=== PATIENT | female | born 1935 | race Caucasian/White ===

== ENCOUNTER 2017-05-22 08:32 | Emergency (ER) | payer MEDICARE, OTHER ==
[2017-05-22] MEDS ORDERED: ACETAMINOPHEN 500 MG TABLET PO ONE (08:39)
[2017-05-22 08:55] LABS: Hematocrit 36.8 % (37.0-47.0); Mean Cell Volume 94.6 fl (78-100); Mean Corpuscular Hemoglobin 30.8 pg (27-31); Mean Corpuscular Hgb Conc 32.6 g/dl (32-36); Mean Platelet Volume 9.5 fl (6.0-9.5); Platelet Count 209 K/mm3 (150-450); Red Blood Count 3.89 M/mm3 (4.2-5.4); Red Cell Distribution Width 15.4 % (11.5-14.0); White Blood Count 19.6 K/mm3 (4.0-10.5)
--- NOTE | 2017-05-22 09:02 | ERNOTE ---
Time Seen by Provider: 05/22/17 08:41 Stated Complaint: NAUSEA Presenting Symptoms:: cough, other - congestion Exam Limitations: no limitations Immunizations: IMMUNIZATION HX Immunizations Up to Date Yes History of Influenza Vaccine Yes Hx Pneumococcal Vaccination Yes Allergies/Adverse Reactions: Allergies No Known Allergies Allergy (Verified 05/22/17 08:38) Home Medications: HOME MEDICATIONS Alendronate Sodium [Fosamax] 70 mg PO Q7D 07/20/14 [Last Taken 07/17/14] Atenolol [Tenormin] 50 mg PO DAILY 07/20/14 [Last Taken Unknown] Golimumab [Simponi Aria] 50 mg IV Q2M 07/20/14 [Last Taken Unknown] HYDROcodone/ACETAMINOPHEN [[place] 5-325] 1 tab PO Q4H PRN 07/20/14 [Last Taken Unknown] Methotrexate Sodium [Methotrexate] 15 mg PO Q7D 07/20/14 [Last Taken 07/16/14] Tolterodine Tartrate [Detrol LA] 4 mg PO DAILY 07/20/14 [Last Taken Unknown] predniSONE [Prednisone] 5 mg PO DAILY 07/20/14 [Last Taken Unknown] Clopidogrel Bisulfate [Plavix] 75 mg PO DAILY #30 tab 08/01/14 [Last Taken Unknown] amLODIPine BESYLATE [Norvasc] 5 mg PO DAILY #30 tab 08/01/14 [Last Taken Unknown ] Aspirin [Aspirin Chewable] 81 mg PO DAILY 02/17/15 [Last Taken Unknown] Azithromycin [Zithromax] 250 mg PO DAILY #6 tablet 05/22/17 [Last Taken Unknown] - History of Present Ilness Narrative: Patient states that for the past several weeks she's had congestion and cough. She states this morning, but worse and she spiked a fever and became concerned. Timing: getting worse Severity: moderate Frequency/Possible Cause: Reports: no prior episodes Modifying Factors - Improves: Reports: albuterol Modifying Factors - Worsens: Reports: nothing Associated Symptoms: Reports: cough Review of Systems - Review of Systems Constitutional: Present: See HPI EYE: Present: no symptoms reported ENT: Present: sore throat Respiratory: Present: cough Cardiology: Present: no symptoms reported Gastrointestinal/Abdominal: Present: no symptoms reported Genitourinary: Present: no symptoms reported Musculoskeletal: Present: no symptoms reported Skin: Present: no symptoms reported Neurological: Present: no symptoms reported Endocrine: Present: no symptoms reported Hematologic/Lymphatic: Present: no symptoms reported Psych: Present: no symptoms reported - Patient's Past Medical History Patient History - Medical: Arthritis, Depression, Other - RA Patient History - Cardiac/Respiratory: Hypertension Patient History - Surgical Procedures: Appendectomy, Cataracts, Hysterectomy, T & A, Other - Social History Smoking Status: Former smoker - Immunizations Immunizations Up to Date: Yes Hx Pneumococcal Vaccination: Yes History of Influenza Vaccine: Yes Physical Exam - Physical Exam General Appearance: Present: wd/wn, alert, mild distress Head Exam: Present: normal inspection, no evidence of injury Eye Exam: Normal inspection: bilateral, PERRL: bilateral Ears, Nose, Throat: Present: normal ENT inspection, pharyngeal erythema Neck: Present: normal inspection, nontender Respiratory: Present: no respiratory distress, no accessory muscle use, chest nontender, other Cardiovascular/Chest: Present: regular rate, rhythm, no murmur, normal peripheral pulses Gastrointestinal/Abdominal: Present: normal bowel sounds, nontender, nondistended, soft, no organomegaly Rectal Exam: Present: deferred Back Exam: Present: normal inspection, normal range of motion Extremity Exam: Present: normal inspection, non-tender, no edema, normal range of motion Neurological Exam: Present: alert, oriented, normal mood/affect Skin Exam: Present: normal color, warm/dry Lymphatic Exam: Present: no adenopathy ED Progress - Results and Orders Patient's Lab Results:: I have reviewed the patient's lab results. - Vital Signs Patient's Vital Signs:: I have reviewed the patient's vital signs. Vital Signs: Vital Signs 05/22/17 05/22/17 08:35 08:43 Temperature 38 C H Pulse Rate 71 71 Respiratory 18 Rate Blood Pressure 145/64 O2 Sat by Pulse 94 Oximetry - X-Ray X-Ray #1 X-Ray: chest Interpretation: Reviewed by me - Progress/Reassessment Chief Complaint: Upper Respiratory Symptoms Plan - Plan Plan: While the patient only has an upper respiratory infection she is immunosuppressed from her rheumatoid arthritis and runs with a chronically elevated white count. Patient will be given 1 g Rocephin IM and she'll be started on antibiotics with the caveat to follow-up with her family physician within one week. She agrees to continue to force fluids and will watch her fever closely and treated with either ibuprofen or Tylenol at home. Departure Clinical Impression: Bronchitis URI (upper respiratory infection) Qualifiers: URI type: unspecified URI Qualified Code(s): J06.9 - Acute upper respiratory infection, unspecified - Departure Disposition: Home self-care Condition: Good Instructions: Acute Bronchitis Referrals: Laurie Honeycutt MD [Primary Care Provider] - Prescriptions: Azithromycin [Zithromax] 250 mg PO DAILY #6 tablet
[2017-05-22 09:07] LABS: Albumin * 3.3 gm/dl (3.4-5.0); Anion Gap 10.5 mmol/L (6.8-13.8); BUN/Creatinine Ratio 12.8 (9.0-21.6); Bilirubin, Total 0.5 mg/dL (0.0-1.1); Ca. Corrected For Albumin 8.9 mg/dL (8.4-10.2); Calcium * 8.7 mg/dL (7.9-10.9); Carbon Dioxide 30.4 mmol/L (24-32.6); Potassium 3.9 mmol/L (3.4-4.6); Total Protein 6.8 gm/dL (6.2-8.2)
[2017-05-22 09:09] LABS: Total Cells Counted 100
[2017-05-22 09:21] LABS: Urine Bilirubin Negative (NEGATIVE); Urine Blood Negative /ul (NEGATIVE); Urine Ketone Negative (NEGATIVE); Urine Nitrite Negative (NEGATIVE); Urine Protein Negative (NEGATIVE); Urine Urobilinogen Normal (NORMAL)
[2017-05-22 09:23] LABS: Band 5 % (0-2.0); Dohle Bodies Trace; Eosinophil 4 % (0-3); Immature Granulocyte 2 (0-1); Lymphocyte 9 % (20-51); Monocyte 8 % (0-9); Neutrophil 72 % (42-75); Neutrophil # 14.1 K/mm3 (1.3-6.0); Platelet Estimate Normal (NORMAL); Toxic Granulation Trace
[2017-05-22 09:33] LABS: Urine Appearance Clear; Urine Bacteria TRACE; Urine Color Yellow; Urine RBC None Seen /hpf (0-5); Urine WBC None Seen /hpf (0-5)
[2017-05-22] MEDS ORDERED: LIDOCAINE HCL 20 ML VIAL ONE (10:12)
[2017-05-22 10:31] VITALS: BP 108/50
== END 2017-05-22 11:06 | disposition home or self-care (01) ==
LOC: ER 08:32
DX: J40 Bronchitis, not specified as acute or chronic (principal); J06.9 Acute upper respiratory infection, unspecified; Z87.891 Personal history of nicotine dependence; I10 Essential (primary) hypertension; M06.9 Rheumatoid arthritis, unspecified

== ENCOUNTER 2020-03-05 19:41 | Observation (INO) ==
[2020-03-05] MEDS ORDERED: PANTOPRAZOLE SODIUM 40 MG/100 ML PIGGYBACK IV ONE (20:42)
[2020-03-05] MEDS ORDERED: NORMAL SALINE 1,000 ML IV ONE (20:42)
--- NOTE | 2020-03-05 20:45 | ERNOTE ---
Abdominal HPI - Narrative Date of Service: 03/05/20 - General Chief Complaint: General Assessment Time Seen by Provider: 03/05/20 20:32 Source: patient, family, RN notes reviewed, past records Exam Limitations: no limitations - Immun/Allergies/Home Medications Immunizatons: IMMUNIZATION HX Immunizations Up to Date Yes History of Influenza Vaccine Yes Hx Pneumococcal Vaccination Yes Allergies/Adverse Reactions: Allergies morphine Adverse Reaction (Mild, Verified 03/05/20 19:57) Nausea Home Medications: HOME MEDICATIONS Golimumab [Simponi Aria] 50 mg IV Q2M 07/20/14 [Last Taken Unknown] HYDROcodone/ACETAMINOPHEN [[place] 5-325] 1 tab PO Q4H PRN 07/20/14 [Last Taken Unknown] Methotrexate Sodium [Methotrexate] 15 mg PO Q7D 07/20/14 [Last Taken 07/16/14] Ondansetron [Zofran Odt] 4 mg PO Q6H PRN #20 tab 02/25/19 [Last Taken Unknown] atenolol 50 mg tablet 50 mg PO DAILY #90 tab 07/30/19 [Last Taken Unknown] clopidogrel 75 mg tablet 75 mg PO DAILY #90 tab 07/30/19 [Last Taken Unknown] tolterodine 4 mg capsule,extended release 24 hr 4 mg PO DAILY #90 cap 07/30/19 [Last Taken Unknown] prednisone 2.5 mg tablet 2.5 mg PO DAILY 11/17/19 [Last Taken Unknown] cholecalciferol (vitamin D3) 25 mcg (1,000 unit) capsule 25 mcg PO DAILY 11/24/19 [Last Taken Unknown] lactobacillus combination no.8 3 billion cell capsule 3,000 mmu cells PO DAILY 11/24/19 [Last Taken Unknown] omeprazole 20 mg capsule,delayed release 20 mg PO DAILY PRN cap 11/24/19 [Last Taken Unknown] vit C,E,zinc,copper-whidx2y 250 mg-lutein 5 mg-zeaxanthin 1 mg capsule 1 cap PO DAILY 11/24/19 [Last Taken Unknown] amlodipine 5 mg tablet See Rx Instructions .ROUTE .COMPLEX #90 unknown measurement unit code: tablet 02/20/20 [Last Taken Unknown] - History of Present Illness Narrative: Shelli is an 84-year-old female who presents to the emergency department for abdominal pain, dry heaves and poor appetite. This is been going on for approximately 3 months but has worsened over the past week. Her pain is in the epigastric region and is not constant. She reports that her stomach is constantly upset. When she eats she becomes full very quickly. She has lost 32 pounds since her symptoms began. She saw her PCP 2 days ago. An upper GI series was ordered but has not yet been scheduled. Timing: getting worse Modifying Factors - (Improves): Absent: defecating, eating, rest, lying down, sitting up Modifying Factors - (Worsens): Present: eating. Absent: defecating, rest, lying down, sitting up, movement Associated Symptoms: Present: fatigue, nausea, loss of appetite. Absent: fever/chills, vomiting Prior Treatment: Present: recently seen Review of Systems - Review of Systems Constitutional: Absent: recent illness, fever, chills EYE: Present: no symptoms reported ENT: Present: no symptoms reported Respiratory: Absent: shortness of breath, cough Cardiology: Absent: chest pain, syncope Gastrointestinal/Abdominal: Present: See HPI Genitourinary: Absent: frequency, dysuria Musculoskeletal: Present: muscle pain, joint pain, joint swelling Skin: Absent: rash, lesions Neurological: Present: weakness. Absent: headache, dizziness/light-headedness Endocrine: Present: no symptoms reported Hematologic/Lymphatic: Present: easy bruising, easy bleeding Psych: Present: no symptoms reported Medical History (Last Reviewed 03/05/20 @ 20:55 by Brandie Gong NP) Hypertension (Chronic) Rheumatoid arthritis (Chronic) Surgical History: Surgical History (Last Reviewed 03/05/20 @ 20:55 by Brandie Gong NP) History of appendectomy History of hysterectomy History of tonsillectomy Family History: Family History (Last Reviewed 03/05/20 @ 20:55 by Brandie Gong NP) Father Prostate cancer Mother Colon cancer Social History: (Last Reviewed 03/05/20 @ 20:56 by Brandie Gong NP) Tobacco: Smoking Status: Former smoker Alcohol: alcohol intake: former Substance Use: substance use type: does not use Physical Exam - Physical Exam General Appearance: Present: wd/wn, alert, other - In no acute distress but appears to not feel well Head Exam: Present: normal inspection Eye Exam: Normal inspection: bilateral Neck: Present: normal inspection, nontender, supple Respiratory: Present: no respiratory distress, normal breath sounds, no accessory muscle use, lungs clear Cardiovascular/Chest: Present: regular rate, rhythm, normal peripheral pulses Gastrointestinal/Abdominal: Present: normal bowel sounds, nondistended, soft, tenderness - mild, epigastric Extremity Exam: Present: decreased range of motion - chronic, RA, multiple joints, joint redness - right wrist, joint swelling - RA, multiple joints, Right wrist most noteable Neurological Exam: Present: alert, oriented, normal mood/affect, no motor/sensory deficits Skin Exam: Present: warm/dry, pallor Progress - Results and Orders Patient's Lab Results:: I have reviewed the patient's lab results. - Vital Signs Patient's Vital Signs:: I have reviewed the patient's vital signs. Vital Signs: Vital Signs 03/05/20 19:45 Temperature 37.1 C Pulse Rate 96 Respiratory Rate 20 Blood Pressure 122/75 O2 Sat by Pulse Oximetry 97 - X-Ray X-Ray #1 X-Ray: abdomen Interpretation: Interp. by me X-ray Comments: no acute intra-abdominal findings - Progress/Reassessment Chief Complaint: General Assessment Progress:: Unchanged - Transfer of Care Physician Sign Out: Brandie Gong Receiving Physician: Julius Whitman Pending Results: CT/MRI results Expected Disposition: Discharge Departure Clinical Impression: Epigastric pain, Early satiety - Departure Disposition: Home self-care Condition: Stable Referrals: Laurie Honeycutt MD [Primary Care Provider] -
[2020-03-05 20:57] LABS: Hematocrit 40.3 % (37.0-47.0); Hemoglobin 12.7 gm/dL (12.5-16.0); Mean Cell Volume 91.6 fl (78-100); Mean Corpuscular Hemoglobin 28.9 pg (27-31); Mean Corpuscular Hgb Conc 31.5 g/dl (32-36); Mean Platelet Volume 9.6 fl (8-12.5); Neutrophil # 7.1 K/mm3 (1.3-6.0); Neutrophil % 57.2 % (42-75.0); Platelet Count 377 K/mm3 (150-450); Red Cell Distribution Width 14.6 % (11.5-14.0); White Blood Count 12.4 K/mm3 (4.0-10.5)
[2020-03-05 21:10] LABS: Albumin * 2.8 gm/dl (3.4-5.0); Anion Gap 14.1 mmol/L (6.8-13.8); BUN/Creatinine Ratio 14.1 (9.0-21.6); Bilirubin, Total 0.5 mg/dL (0.0-1.1); Ca. Corrected For Albumin 9.3 mg/dL (8.4-10.2); Calcium * 8.7 mg/dL (7.9-10.9); Carbon Dioxide 24.4 mmol/L (24-32.6); Potassium 3.5 mmol/L (3.4-4.6); Total Protein 6.7 gm/dL (6.2-8.2)
[2020-03-05] MEDS ORDERED: HYDROcodone/ACETAMINOPHEN 1 EACH TABLET PO ONE (21:36)
[2020-03-05] MEDS ORDERED: DIATRIZOATE MEGLUMINE, SODIUM 30 ML BTL PO ONE (21:45)
[2020-03-05] MEDS ORDERED: HYDROmorphone HCL 1 MG/ML DISP.SYRIN IV ONE (22:06)
[2020-03-05] MEDS ORDERED: HYDROmorphone HCL 2 MG/ML VIAL IV PRN (22:18)
[2020-03-05] MEDS ORDERED: ONDANSETRON HCL/PF 2 MG/ML VIAL IV PRN (22:18)
[2020-03-05] MEDS ORDERED: PROCHLORPERAZINE EDISYLATE 5 MG/ML VIAL IV PRN (22:18)
[2020-03-06] MEDS ORDERED: HYDROmorphone HCL 1 MG/ML DISP.SYRIN IV PRN (07:15)
--- NOTE | 2020-03-06 08:36 | HP ---
Chief Complaint - Chief Complaint Date of Service: 03/06/20 Time of Service: 08:32 Chief Complaint: intractable pain History of Present Illness: Shelli Huynh is an 84-year-old white female, with past medical history of rheumatoid arthritis, hypertension, TIA, GERD who was admitted on 03/05/2020 for abdominal pain, dry heaves and poor appetite. She is also complaining of knee pains, wrist pains especially her right wrist. She says her pain is all over, 9/10, and her pain is not being relieved by her usual pain medication which is [place]. She was scheduled for an upper GI series because of early satiety and weight loss but our radiology is not doing it at this time due to the [place] crisis. Last night the patient just wanted comfort measures and hospice consult. Today she does say that she still wants her medications to be amita nued and what she meant was if her heart stops or her breathing stops she does not want any aggressive intervention and just wants comfort care. She is a DNR. She is willing to do an abdominal CT scan today. Medical History (Last Reviewed 03/05/20 @ 23:35 by Steffi Powell RN) Hypertension (Chronic) Rheumatoid arthritis (Chronic) Surgical History: Surgical History (Last Reviewed 03/05/20 @ 23:35 by Steffi Powell RN) History of appendectomy History of hysterectomy History of tonsillectomy Family History: Family History (Last Updated 03/05/20 @ 23:37 by Steffi Powell RN) Father Prostate cancer Mother Colon cancer Other Patient's sister is Social History: (Last Reviewed 03/05/20 @ 23:38 by Steffi Powell RN) Tobacco: Smoking Status: Former smoker Alcohol: alcohol intake: former Substance Use: substance use type: does not use Review Of Systems (GEN) - Review of Systems Generalized/Overall Review: Present: Weakness. Absent: Chills, Fever EENTM: Absent: Blurred Vision Respiratory: Absent: Cough, Shortness of Breath, Orthopnea Cardiac: Absent: Chest Pain, Edema, Palpitations Abdominal: Present: Nausea, Abdominal Pain. Absent: Vomiting Genitourinary: Absent: Urgency, Frequency Musculoskeletal: Present: Joint Pain, Back Pain, Joint Swelling Neurological: Absent: Anxiety, Depressed Skin: Absent: Lesions, Rash Endocrine: Present: Intolerance to Cold, Intolerance to Heat Misc: All systems neg except as marked Immunizations: IMMUNIZATION HX Immunizations Up to Date Yes History of Influenza Vaccine Yes Hx Pneumococcal Vaccination Yes Allergies/Adverse Reactions: Allergies Allergy/AdvReac Type Severity Reaction Status Date / Time morphine AdvReac Mild Nausea Verified 03/05/20 19:57 Home Medications: HOME MEDICATIONS Golimumab [Simponi Aria] 50 mg IV Q2M 07/20/14 [Last Taken 01/25/20] HYDROcodone/ACETAMINOPHEN [[place] 5-325] 1 tab PO Q4H PRN 07/20/14 [Last Taken 03/04/20 20:00] Methotrexate Sodium [Methotrexate] 15 mg PO Q7D 07/20/14 [Last Taken 03/03/20 06:00] Ondansetron [Zofran Odt] 4 mg PO Q6H PRN #20 tab 02/25/19 [Last Taken 03/02/20] atenolol 50 mg tablet 50 mg PO DAILY #90 tab 07/30/19 [Last Taken 03/04/20 20:00] clopidogrel 75 mg tablet 75 mg PO DAILY #90 tab 07/30/19 [Last Taken 03/04/20 06:00] tolterodine 4 mg capsule,extended release 24 hr 4 mg PO DAILY #90 cap 07/30/19 [Last Taken 03/04/20 20:00] prednisone 2.5 mg tablet 2.5 mg PO DAILY 11/17/19 [Last Taken 03/04/20 06:00] cholecalciferol (vitamin D3) 25 mcg (1,000 unit) capsule 25 mcg PO DAILY 11/24/19 [Last Taken 03/04/20 06:00] lactobacillus combination no.8 3 billion cell capsule 3,000 mmu cells PO DAILY 11/24/19 [Last Taken 03/04/20 06:00] omeprazole 20 mg capsule,delayed release 20 mg PO DAILY PRN cap 11/24/19 [Last Taken 03/04/20 06:00] vit C,E,zinc,copper-oogoa0l 250 mg-lutein 5 mg-zeaxanthin 1 mg capsule 1 cap PO DAILY 11/24/19 [Last Taken 03/04/20 06:00] amlodipine 5 mg tablet See Rx Instructions .ROUTE .COMPLEX #90 unknown measurement unit code: tablet 02/20/20 [Last Taken 03/04/20 06:00] Exam - Exam Vital Signs: Vital Signs - Last Taken Temp 37.0 C 03/05/20 23:05 Pulse 100 03/05/20 23:05 Resp 18 03/05/20 23:05 BP 121/79 03/05/20 23:05 Pulse Ox 97 03/05/20 23:05 Constitutional: Present: Alert, Oriented x3, Cooperative, Moderate distress, Elderly ENT Exam: Present: hearing grossly normal Eye Exam: bilateral eye: normal inspection, PERRL, EOMI Neck: Present: supple. Absent: lymphadenopathy (R), lymphadenopathy (L) Respiratory: Present: decreased breath sounds, No rales, No wheezing Cardiovascular/Chest: Present: regular rate, rhythm, no JVD, no murmur Abdomen: Present: Normal bowel sounds, soft, tender, negative Adams sign. Absent: rebound tenderness Extremity: Present: no calf tenderness, pedal edema, other - reight wrist -wam, slightly erythematous, positive selling , decreased ROM Diagnostic Studies: Abnormal Lab Results 03/05/20 03/05/20 Range/Units 20:50 20:50 WBC 12.4 H (4.0-10.5) K/mm3 MCHC 31.5 L (32-36) g/dl RDW 14.6 H (11.5-14.0) % Immature Gran # (Auto) 0.04 H (0.000-0.0310) K/mm3 Monocytes % 9.5 H (0.0-9) % Eosinophils % 3.2 H (0.0-3.0) % Neutrophils # 7.1 H (1.3-6.0) K/mm3 Lymphocytes # 3.60 H (1.5-3.5) k/mm3 Monocytes # 1.2 H (0.0-1.0) k/mm3 Anion Gap 14.1 H (6.8-13.8) mmol/L Random Glucose 129 H (70-110) mg/dL ALT 9 L (19-67) U/L Albumin 2.8 L (3.4-5.0) gm/dl Lipase 46 L (73-393) U/L Laboratory Results WBC 12.4 K/mm3 (4.0-10.5) H 03/05/20 20:50 RBC 4.40 M/mm3 (4.2-5.4) 03/05/20 20:50 Hgb 12.7 gm/dL (12.5-16.0) 03/05/20 20:50 Hct 40.3 % (37.0-47.0) 03/05/20 20:50 MCV 91.6 fl (78-100) 03/05/20 20:50 MCH 28.9 pg (27-31) 03/05/20 20:50 MCHC 31.5 g/dl (32-36) L 03/05/20 20:50 RDW 14.6 % (11.5-14.0) H 03/05/20 20:50 Plt Count 377 K/mm3 (150-450) 03/05/20 20:50 MPV 9.6 fl (8-12.5) 03/05/20 20:50 Immature Gran % (Auto) 0.30 % (0.001-0.429) 03/05/20 20:50 Immature Gran # (Auto) 0.04 K/mm3 (0.000-0.0310) H 03/05/20 20:50 Neutrophils % 57.2 % (42-75.0) 03/05/20 20:50 Lymphocytes % 29.1 % (20-51) 03/05/20 20:50 Monocytes % 9.5 % (0.0-9) H 03/05/20 20:50 Eosinophils % 3.2 % (0.0-3.0) H 03/05/20 20:50 Basophils % 0.7 % (0.0-1.0) 03/05/20 20:50 Nucleated RBC % 0.0 k/mm3 (0-1) 03/05/20 20:50 Neutrophils # 7.1 K/mm3 (1.3-6.0) H 03/05/20 20:50 Lymphocytes # 3.60 k/mm3 (1.5-3.5) H 03/05/20 20:50 Monocytes # 1.2 k/mm3 (0.0-1.0) H 03/05/20 20:50 Eosinophils # 0.4 k/mm3 (0.0-0.7) 03/05/20 20:50 Absolute Basophils 0.1 k/mm3 (0.0-0.1) 03/05/20 20:50 Sodium 136 mmol/L (132-142) 03/05/20 20:50 Plasma Sodium 136 mmol/L (130-142) 03/05/20 20:50 Potassium 3.5 mmol/L (3.4-4.6) 03/05/20 20:50 Chloride 101 mmol/L (97-106) 03/05/20 20:50 Carbon Dioxide 24.4 mmol/L (24-32.6) 03/05/20 20:50 Anion Gap 14.1 mmol/L (6.8-13.8) H 03/05/20 20:50 BUN 11 mg/dL (3-23) 03/05/20 20:50 Creatinine 0.78 mg/dL (0.4-1.4) 03/05/20 20:50 Est GFR (Non-Af Amer) 75 mL/min (60-130) D 03/05/20 20:50 BUN/Creatinine Ratio 14.1 (9.0-21.6) 03/05/20 20:50 Random Glucose 129 mg/dL (70-110) H 03/05/20 20:50 Calcium 8.7 mg/dL (7.9-10.9) 03/05/20 20:50 Calcium Adj for Albumin 9.3 mg/dL (8.4-10.2) 03/05/20 20:50 Total Bilirubin 0.5 mg/dL (0.0-1.1) 03/05/20 20:50 AST 17 U/L (0-48) 03/05/20 20:50 ALT 9 U/L (19-67) L 03/05/20 20:50 Alkaline Phosphatase 60 U/L (50-170) 03/05/20 20:50 Total Protein 6.7 gm/dL (6.2-8.2) 03/05/20 20:50 Albumin 2.8 gm/dl (3.4-5.0) L 03/05/20 20:50 Lipase 46 U/L (73-393) L 03/05/20 20:50 Assessment/Plan - Narrative Narrative: Shelli is an 84-year-old white female who was admitted for intractable pain, not relieved by her home pain medications, secondary to epigastric abdominal pain and polyarthralgia with rheumatoid arthritis flareup. Her epigastric abdominal pain is associated with early satiety and weight loss and an upper GI series with small bowel follow-through was ordered but could not be done due to the room being under construction. 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 Mild to moderate diverticulosis without diverticulitis. I did ask her if her epigastric pain is worst after taking a meal as this could be also intestinal angina but she denies this. It is the fee ling that she gets filled up easily (like early satiety) and she starts getting nauseated and gets dry heaves.. Her right wrist is likely due to her rheumatoid flareup and will increase her steroid , MTX and pain medications. She is on methotrexate q. 7 days and golimumab every 2 months. We will defer from doing a repeat CT scan of the abdomen and pelvis as we just had one recentlhy and she mi ght aspirate PO dye. I talked to radiology and they are not doing the upper GI series because the room is still broken down and is under construction. I will see if they are doing any EGD in these Covid times. We will get a hospice consult. Will get an xray of her right wrist. - Assessment/Plan (1) Epigastric abdominal pain Problem: Acute (2) Polyarthralgia Problem: Acute (3) Rheumatoid arthritis flare Problem: Acute (4) Weight loss Problem: Acute (5) Hypertension Problem: Acute (6) History of TIA (transient ischemic attack) Problem: Resolved (7) GERD (gastroesophageal reflux disease) Problem: Chronic Qualifiers: Esophagitis presence: esophagitis presence not specified Qualified Code(s): K21.9 - Gastro-esophageal reflux disease without esophagitis
[2020-03-06] MEDS ORDERED: ONDANSETRON 4 MG TAB.RAPDIS PO PRN (09:07)
[2020-03-06] MEDS ORDERED: METHOTREXATE SODIUM 2.5 MG TABLET PO SCH (09:15)
[2020-03-06] MEDS ORDERED: HYDROmorphone HCL 2 MG TABLET PO PRN (09:21)
[2020-03-06] MEDS: CHOLECALCIFEROL 1,000 UNIT CAPSULE PO SCH (10:09)
[2020-03-06] MEDS: LACTOBACILLUS ACIDOPHILUS 1 EACH CAPSULE PO SCH (10:09)
[2020-03-06] MEDS: ATENOLOL 50 MG TABLET PO SCH (10:10)
[2020-03-06] MEDS: BETA-CAROTENE(A) W-C , E/MIN 1 TAB TABLET PO SCH (10:10)
[2020-03-06] MEDS: amLODIPine BESYLATE 5 MG TABLET PO SCH (10:10)
[2020-03-06] MEDS: PANTOPRAZOLE SODIUM 40 MG TABLET.EC PO SCH (10:10)
[2020-03-06] MEDS: CLOPIDOGREL BISULFATE 75 MG TABLET PO SCH (10:10)
[2020-03-06] MEDS: TOLTERODINE TARTRATE 4 MG CAPSULE PO SCH (10:10)
[2020-03-06] MEDS: predniSONE 20 MG TABLET PO SCH (10:10)
[2020-03-06] MEDS: GOLIMUMAB 50 MG IV SCH ×2 (10:33→10:34)
[2020-03-07] MEDS: PANTOPRAZOLE SODIUM 40 MG TABLET.EC PO SCH (07:03)
--- NOTE | 2020-03-07 08:54 | DS ---
(1) Epigastric abdominal pain Problem: Acute (2) Polyarthralgia Problem: Acute (3) Rheumatoid arthritis flare Problem: Acute (4) Weight loss Problem: Acute (5) Hypertension Problem: Acute (6) History of TIA (transient ischemic attack) Problem: Resolved (7) GERD (gastroesophageal reflux disease) Problem: Chronic Qualifiers: Esophagitis presence: esophagitis presence not specified Qualified Code(s): K21.9 - Gastro-esophageal reflux disease without esophagitis Date of Discharge:: 03/07/20 Hospital Course: Shelli Huynh is an 84-year-old white female, with past medical history of rheumatoid arthritis, hypertension, TIA, GERD who was admitted on 03/05/2020 for abdominal pain, dry heaves and poor appetite. She is also complaining of knee pains, wrist pains especially her right wrist. She says her pain is all over, 9/10, and her pain is not being relieved by her usual pain medication which is Vicodin. She was scheduled for an upper GI series because of early satiety and weight loss but our radiology is not doing it at this time due to the room where it is being done is under construction.. Last night the patient just wanted comfort measures and hospice consult. Today she does say that she still wants her medications to be continued and what she meant was if her heart stops or her breathing stops she does not want any aggressive intervention and just wants comfort care. She is a DNR. 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 Mild to moderate diverticulosis without diverticulitis. I did ask her if her epigastric pain is worst after taking a meal as this could be also intestinal angina but she denied this. It is the feeling that she gets filled up easily (like early satiety) and she starts getting nauseated and gets dry heaves.. Her right wrist swelling and erythema is due to her rheumatoid flareup. 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 We increased her steroid , MTX and pain medications. She says she has been taking only 1/2 tab PRN at home. She is on methotrexate q. 7 days and golimumab every 2 months. Her polyarthralgia nad epigastric pain improved siginificantly. We deferred from doing a repeat CT scan of the abdomen and pelvis as we just had one recently and she might aspirate the PO dye. I talked to radiology and they are not doing the upper GI series because the room is still broken down and is under construction. We will try to schedule this in [facility]. I will see if they are doing any EGD in these Covid times and will schedule it as outpatient. We will refer her to Home Health care as she is homebound from her multiple medical problems and including generalized weakness, weight loss, deconditioning, polyarthralgia from her RA. She will need prison care for monitoring of vital signs, management and education of her medications zeinab. pain meds and rheumatological medications. She will need PT for strengthening exercises and increasing ROM to improve balance and and ambulation. The need for home health care skilled services is directly related to the time spent face to face with the patient. Procedures Performed: none Results and Findings: Lab Pending Results 03/05/20 20:50: WBC 12.4 H, RBC 4.40, Hgb 12.7, Hct 40.3, MCV 91.6, MCH 28.9, MCHC 31.5 L, RDW 14.6 H, Plt Count 377, MPV 9.6, Immature Gran % (Auto) 0.30, Immature Gran # (Auto) 0.04 H, Neutrophils % 57.2, Lymphocytes % 29.1, Monocytes % 9.5 H, Eosinophils % 3.2 H, Basophils % 0.7, Nucleated RBC % 0.0, Neutrophils # 7.1 H, Lymphocytes # 3.60 H, Monocytes # 1.2 H, Eosinophils # 0.4, Absolute Basophils 0.1 03/05/20 20:50: Sodium 136, Plasma Sodium 136, Potassium 3.5, Chloride 101, Carbon Dioxide 24.4, Anion Gap 14.1 H, BUN 11, Creatinine 0.78, Est GFR (Non-Af Amer) 75 D, BUN/Creatinine Ratio 14.1, Random Glucose 129 H, Calcium 8.7, Calcium Adj for Albumin 9.3, Total Bilirubin 0.5, AST 17, ALT 9 L, Alkaline Phosphatase 60, Total Protein 6.7, Albumin 2.8 L, Lipase 46 L 03/06/20 09:40: ESR 27 H 08/29/20 09:40: C-Reactive Prot, Quant 9.5 H Discharge Location: Home Disposition: Home Health Service Home [facility] Agency: [facility] Condition: Fair Face to Face Encounter completed per [facility] Guidelines: Yes Discharge Activity: Activity as tolerated Discharge Diet: Low salt Referrals: Laurie Honeycutt MD [Primary Care Provider] - Additional Patient Instructions (free text): Please schedule an UGIS with small bowel follow thru in [facility]- Epigastric pain/weight loss/early satiety. Follow up with PCP in 1 week. Prescriptions (Any new or edited meds): Methotrexate Sodium [Methotrexate] 17.5 mg PO Q7D #60 predniSONE [Prednisone] 5 mg PO DAILY #100 tab Transmission Status: Pending to [facility] Complete Home Medications List: Complete Home Medication List: Golimumab [Simponi Aria] 50 mg IV Q2M 07/20/14 HYDROcodone/ACETAMINOPHEN [[place] 5-325] 1 tab PO Q4H PRN 07/20/14 Ondansetron [Zofran Odt] 4 mg PO Q6H PRN #20 tab 02/25/19 atenolol 50 mg tablet 50 mg PO DAILY #90 tab 07/30/19 clopidogrel 75 mg tablet 75 mg PO DAILY #90 tab 07/30/19 tolterodine 4 mg capsule,extended release 24 hr 4 mg PO DAILY #90 cap 07/30/19 cholecalciferol (vitamin D3) 25 mcg (1,000 unit) capsule 25 mcg PO DAILY 11/24/19 lactobacillus combination no.8 3 billion cell capsule 3,000 mmu cells PO DAILY 0 11/24/19 omeprazole 20 mg capsule,delayed release 20 mg PO DAILY PRN cap 11/24/19 vit C,E,zinc,copper-zvxdc2p 250 mg-lutein 5 mg-zeaxanthin 1 mg capsule 1 cap PO DAILY 11/24/19 amlodipine 5 mg tablet See Rx Instructions .ROUTE .COMPLEX #90 unknown measurement unit code: tablet 02/20/20 Methotrexate Sodium [Methotrexate] 17.5 mg PO Q7D #60 03/07/20 predniSONE [Prednisone] 5 mg PO DAILY #100 tab 03/07/20 Forms: Patient Portal Registration
[2020-03-07] MEDS: LACTOBACILLUS ACIDOPHILUS 1 EACH CAPSULE PO SCH (09:24)
[2020-03-07] MEDS: TOLTERODINE TARTRATE 4 MG CAPSULE PO SCH (09:25)
[2020-03-07] MEDS: BETA-CAROTENE(A) W-C , E/MIN 1 TAB TABLET PO SCH (09:26)
[2020-03-07] MEDS: predniSONE 20 MG TABLET PO SCH (09:26)
[2020-03-07] MEDS: CLOPIDOGREL BISULFATE 75 MG TABLET PO SCH (09:26)
[2020-03-07] MEDS: CHOLECALCIFEROL 1,000 UNIT CAPSULE PO SCH (09:27)
[2020-03-07] MEDS: ATENOLOL 50 MG TABLET PO SCH (09:30)
[2020-03-07] MEDS: amLODIPine BESYLATE 5 MG TABLET PO SCH (09:30)
[2020-03-07 13:13] VITALS: BP 152/94
[2020-03-10] MEDS ORDERED: METHOTREXATE SODIUM 2.5 MG TABLET PO SCH (09:00)
[2020-03-27] MEDS ORDERED: GOLIMUMAB 50 MG IV SCH (09:30)
== END 2020-03-07 13:15 | disposition home health service (06) ==
LOC: MS 19:41 → ER 19:41 → MS 22:30
PROVIDERS: ADMIT Internal Medicine; ATTEND Internal Medicine
DX: R10.13 Epigastric pain; M06.9 Rheumatoid arthritis, unspecified; K21.9 Gastro-esophageal reflux disease without esophagitis; R63.4 Abnormal weight loss; I10 Essential (primary) hypertension; Z86.73 Personal history of transient ischemic attack (TIA), and cerebral infarction without residual deficits; M25.531 Pain in right wrist